=== PATIENT | male | born 1930 | race Caucasian/White ===

== ENCOUNTER 2017-05-31 13:19 | Day surgery (SDC) | payer OTHER ==
[~2017-05-31] VITALS: Ht 167.6 cm; Wt 75.1 kg
[2017-05-31 13:56] VITALS: Ht 167.6 cm; Wt 75.1 kg
[2017-05-31] MEDS ORDERED: SITA50TA2 PO (14:12)
[2017-05-31] MEDS ORDERED: MECL-77 PO (14:12)
[2017-05-31] MEDS ORDERED: ATOR10TA65 PO (14:12)
[2017-05-31] MEDS ORDERED: FELO2.5T3 PO (14:12)
[2017-05-31] MEDS ORDERED: ASPI81TA3 PO (14:12)
[2017-05-31] MEDS ORDERED: TAMS0.4C2 PO (14:12)
[2017-05-31] MEDS ORDERED: LISI20TA11 PO (14:12)
[2017-05-31 15:21] VITALS: BP 152/64; PULSE 52; RESP 18
[2017-05-31] MEDS ORDERED: PROPOFOL 20 ML ONE (15:26)
[2017-05-31] MEDS ORDERED: MIDAZOLAM 1 MG/ML 2 ML INJ ONE (15:26)
[2017-05-31] MEDS ORDERED: LIDOCAINE 2% (SDV) 5 ML INJ ONE (15:26)
--- NOTE | 2017-05-31 16:02 | OPR ---
Date/Time of Note Date/Time of Note DATE: 05/31/17 TIME: 15:57 Operative Report Procedure Date: May 31, 2017 Preoperative Diagnosis * Colorectal cancer screening Postoperative Diagnosis Impression: * 4 mm polyp descending colon. Ablated * Moderate-sized internal hemorrhoids * Otherwise normal colonoscopy to cecum Plan: * Review pathology as soon as available * Annual Hemoccult stool testing * Consider colonoscopy in 5 years pending clinical condition . Operation Performed * Colonoscopy with polyp ablation Surgeon: ERIC ISLAS MD Anesthesia: MAC Estimated Blood Loss: none Specimens * Descending colon polyp Grafts/Implants * None Tubes/Drains * None Disposition: PACU Indications * Colorectal cancer screening Operative\Procedure Findings * 4 mm polyp descending colon. Ablated * Moderate-sized internal hemorrhoids * Otherwise normal colonoscopy to cecum Procedure Description INSTRUMENT USED: Olympus colonoscope. PREPARATION: Adequate. TECHNIQUE: After informed consent, with the patient/relatives understanding the procedure, its indications potential risks and complications, including but not limited to: allergic reaction, bleeding, perforation, infection, missed lesions and after all pertinent questions were answered to the patient's satisfaction, the patient/relatives signed the witnessed informed consent. Following this, premedication was administered slowly IV push by under careful cardiovascular and respiratory monitoring with pulse oximetry, automatic blood pressure and awake overnight monitor. Once the sedative effect was achieved, the patient was placed in the left lateral decubitus position, digital rectal examination was performed. The colonoscope was then introduced and advanced under visual control throughout all segments of the colon including: the rectum, sigmoid, descending colon, splenic flexure, transverse colon, hepatic flexure, ascending colon and finally reaching the cecum which was clearly identified by transillumination, finger indentation and the ileocecal valve. Careful examination of the mucosa of the lower gastrointestinal tract both on insertion as well as withdrawal of the instrument disclosed the following findings: RECTAL EXAMINATION: No evidence of perirectal disease, no masses. COLONIC MUCOSA: There is a small 4 mm polyp in the descending colon. Ablated with biopsy forceps. Otherwise the colonic mucosa appears unremarkable. The instrument was then withdrawn, the patient tolerated the procedure well and was transferred out of the Endoscopy Suite awake and in good condition to continue recovery under observation. ERIC ISLAS MD May 31, 2017 16:02
[2017-05-31 16:21] VITALS: BP 138/65; PULSE 50; RESP 12
== END 2017-05-31 17:37 | disposition home or self-care (01) ==
LOC: GIL 13:19
PROVIDERS: ATTEND Internal Medicine Gastroenterology
DX: Z12.11 Encounter for screening for malignant neoplasm of colon (principal); D12.4 Benign neoplasm of descending colon; K64.8 Other hemorrhoids; E03.9 Hypothyroidism, unspecified; E11.9 Type 2 diabetes mellitus without complications; I10 Essential (primary) hypertension
CPT/HCPCS: 45380; 82962; 88305; J2250; Z7610